=== PATIENT | female | born 1960 | race Caucasian/White ===

== ENCOUNTER 2019-02-08 17:33 | Emergency (ER) | payer MEDICARE, MEDICAID ==
--- NOTE | 2019-02-08 17:45 | Emergency Department Record ---
History of Present Illness - General Chief Complaint: Numbness Stated Complaint: HEAD PAIN/FACE NUMBNESS Time Seen by Provider: 02/08/19 17:45 Source: Patient Mode of Arrival: Ambulatory - Related Data Home Medications: Home Medications Medication Instructions Recorded Confirmed Last Taken Gabapentin/Lidocaine/Menthol 1 each TOP TID 02/08/19 02/08/19 02/07/19 [Smartrx Gabakit] Allergies/Adverse Reactions: Allergies Allergy/AdvReac Type Severity Reaction Status Date / Time Penicillins Allergy Intermediate HIVES Unverified 11/09/18 09:00 Past Medical History - SOCIAL HISTORY Smoking Status: Never smoker - RESPIRATORY Hx Respiratory Disorders: No - CARDIOVASCULAR Hx Cardio Disorders: Yes Hx Hypertension: Yes - NEURO Hx Neuro Disorders: Yes Hx Neuropathy: Yes - GI Hx GI Disorders: Yes Hx Irritable Bowel: Yes Comment:: Colon CA - Hx Genitourinary Disorders: Yes Hx UTI: Yes - ENDOCRINE Hx Endocrine Disorders: Yes Hx Thyroid Disease: Yes (Hypo) - MUSCULOSKELETAL Hx Musculoskeletal Disorders: Yes Hx Arthritis: Yes - PSYCH Hx Psych Problems: Yes Hx Anxiety: Yes Hx Depression: Yes - HEMATOLOGY/ONCOLOGY Hx Hematology/Oncology Disorders: Yes Hx Cancer: Yes Hx Chemotherapy: Yes Family Medical History Hx HTN: Father, Brother/Sister Medical Decision Making - Lab Data Result diagrams: 02/08/19 18:10 02/08/19 18:10 Disposition Clinical Impression: Headache, Numbness and tingling in left arm, Neuropathy, Hypokalemia, Cervical strain, acute, Neuritis Disposition: Home, Self-Care Condition: (1) Good Instructions: Cervical Strain (ED) Additional Instructions: motrin 400 mg ( two advils) three times a day heat to neck three times a day follow up with family Dr in 2-7 days Forms: Patient Portal Access Quality - Quality Measures Quality Measures: N/A - Blood Pressure Screening Does Patient Have Any of the Following: No Blood Pressure Classification: Pre-Hypertensive BP Reading Systolic Measurement: 142 Diastolic Measurement: 81 Screening for High Blood Pressure: < Pre-Hypertensive BP, F/U Documented > [ G8950] Pre-Hypertensive Follow-up Interventions: Referral to alternative/primary care provider.
--- NOTE | 2019-02-08 18:02 | Emergency Department Record ---
History of Present Illness - General Chief Complaint: Numbness Stated Complaint: HEAD PAIN/FACE NUMBNESS Time Seen by Provider: 02/08/19 17:45 Source: Patient, RN notes reviewed Mode of Arrival: Ambulatory - History of Present Illness Initial Comments: left sided head pain and numbness in the left arm and left face and the head started about one week ago and fnumbness started 8 hours ago she also has left neck pain and worse when she palpates the neck and the left side of her head. 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 Onset/Timin -: Minutes(s) Location: Left face History of same: No Quality: Numb Improves With: None Worsens With: None Associated Symptoms: Headaches - Maddock Coma Scale Eye Response: (4) Open spontaneously Motor Response: (6) Obeys commands Verbal Response: (5) Oriented Kassandra Total: 15 - Related Data Home Medications: Home Medications Medication Instructions Recorded Confirmed Last Taken Gabapentin/Lidocaine/Menthol 1 each TOP TID 02/08/19 02/08/19 02/07/19 [Smartrx Gabakit] Allergies/Adverse Reactions: Allergies Allergy/AdvReac Type Severity Reaction Status Date / Time Penicillins Allergy Intermediate HIVES Unverified 11/09/18 09:00 Travel Screening - Travel/Exposure Within Last 30 Days Have you traveled within the last 30 days?: No - Travel/Exposure Within Last Year Have you traveled outside the [place] in the last year?: No - Additonal Travel Details Have you been exposed to anyone with a communicable illness?: No - Travel Symptoms Symptom Screening: Headache Review of Systems Reviewed: No additional complaints except as noted below Constitutional: Reports: As per HPI. Denies: Chills, Fever, Malaise, Night sweats, Weakness, Weight change Eyes: Reports: As per HPI. Denies: Eye discharge, Eye pain, Photophobia, Vision change ENT: Reports: As per HPI. Denies: Congestion, Dental pain, Ear pain, Epistaxis , Hearing loss, Throat pain Respiratory: Reports: As per HPI. Denies: Cough, Dyspnea, Hemoptysis, Stridor, Wheezes Cardiovascular: Reports: As per HPI. Denies: Arrhythmia, Chest pain, Dyspnea on exertion, Edema, Murmurs, Orthopnea, Palpitations, Paroxysmal nocturnal dyspnea, Rheumatic Fever, Syncope Endocrine: Reports: As per HPI. Denies: Fatigue, Heat or cold intolerance, Polydipsia, Polyuria Gastrointestinal: Reports: As per HPI. Denies: Abdominal pain, Constipation, Diarrhea, Hematemesis, Hematochezia, Melena, Nausea, Vomiting Genitourinary: Reports: As per HPI. Denies: Abnormal menses, Discharge, Dyspareunia, Dysuria, Frequency, Hematuria, Incontinence, Retention, Urgency Musculoskeletal: Reports: As per HPI. Denies: Arthralgia, Back pain, Gout, Joint swelling, Myalgia, Neck pain Skin: Reports: As per HPI. Denies: Bruising, Change in color, Change in hair/ nails, Lesions, Pruritus, Rash Neurological: Reports: As per HPI, Headache, Numbness. Denies: Abnormal gait, Confusion, Paresthesias, Seizure, Tingling, Tremors, Vertigo, Weakness Psychiatric: Reports: As per HPI. Denies: Anxiety, Auditory hallucinations, Depression, Homicidal thoughts, Suicidal thoughts, Visual hallucinations Hematological/Lymphatic: Reports: As per HPI. Denies: Anemia, Blood Clots, Easy bleeding, Easy bruising, Swollen glands Past Medical History - SOCIAL HISTORY Smoking Status: Never smoker - RESPIRATORY Hx Respiratory Disorders: No - CARDIOVASCULAR Hx Cardio Disorders: Yes Hx Hypertension: Yes - NEURO Hx Neuro Disorders: Yes Hx Neuropathy: Yes - GI Hx GI Disorders: Yes Hx Irritable Bowel: Yes Comment:: Colon CA - Hx Genitourinary Disorders: Yes Hx UTI: Yes - ENDOCRINE Hx Endocrine Disorders: Yes Hx Thyroid Disease: Yes (Hypo) - MUSCULOSKELETAL Hx Musculoskeletal Disorders: Yes Hx Arthritis: Yes - PSYCH Hx Psych Problems: Yes Hx Anxiety: Yes Hx Depression: Yes - HEMATOLOGY/ONCOLOGY Hx Hematology/Oncology Disorders: Yes Hx Cancer: Yes Hx Chemotherapy: Yes Family Medical History Hx HTN: Father, Brother/Sister Physical Exam - General General Appearance: Alert, Oriented x3, Cooperative, No acute distress - Head Head exam: Normal inspection - Eye Eye exam: Normal appearance, PERRL Pupils: Normal accommodation - ENT ENT exam: Normal exam, Mucous membranes moist, Normal external ear exam, Normal orophraynx, TM's normal bilaterally Ear exam: Normal external inspection. negative: External canal tenderness Nasal Exam: Normal inspection. negative: Discharge, Sinus tenderness Mouth exam: Normal external inspection, Tongue normal Teeth exam: Normal inspection. negative: Dental caries Throat exam: Normal inspection. negative: Tonsillar erythema, Tonsillar exudate - Neck Neck exam: Normal inspection, Full ROM. negative: Tenderness - Respiratory Respiratory exam: Normal lung sounds bilaterally. negative: Respiratory distress - Cardiovascular Cardiovascular Exam: Regular rate, Normal rhythm, Normal heart sounds - GI/Abdominal GI/Abdominal exam: Soft, Normal bowel sounds. negative: Tenderness - Rectal Rectal exam: Deferred - exam: Deferred - Extremities Extremities exam: Normal inspection, Full ROM, Normal capillary refill. negative: Tenderness - Back Back exam: Reports: Normal inspection, Full ROM. Denies: Muscle spasm, Rash noted, Tenderness - Neurological Neurological exam: Alert, Normal gait, Oriented X3, Reflexes normal - Psychiatric Psychiatric exam: Normal affect, Normal mood - Skin Skin exam: Dry, Intact, Normal color, Warm Course Vital Signs 02/08/19 17:36 Temperature 97.8 F Pulse Rate 98 H Respiratory 18 Rate Blood Pressure 142/81 Pulse Ox 98 Medical Decision Making - Data Complexity MDM Data: Labs Ordered and/or Reviewed, X-Ray Ordered and/or Reviewed (CT of head), EKG Ordered and/or Reviewed (NSR no acute changes) - Lab Data Result diagrams: 02/08/19 18:10 02/08/19 18:10 Disposition Clinical Impression: Numbness and tingling in left arm, Neuropathy, Hypokalemia, Neuritis Headache Qualifiers: Headache type: unspecified Headache chronicity pattern: acute headache Intractability: not intractable Qualified Code(s): R51 - Headache Cervical strain, acute Qualifiers: Encounter type: initial encounter Qualified Code(s): S16.1XXA - Strain of muscle, fascia and tendon at neck level, initial encounter Disposition: Home, Self-Care Condition: (1) Good Instructions: Cervical Strain (ED) Additional Instructions: motrin 400 mg ( two advils) three times a day heat to neck three times a day follow up with family Dr in 2-7 days Forms: Patient Portal Access Quality - Quality Measures Quality Measures: N/A - Blood Pressure Screening Does Patient Have Any of the Following: No Blood Pressure Classification: Pre-Hypertensive BP Reading Systolic Measurement: 142 Diastolic Measurement: 81 Screening for High Blood Pressure: < Pre-Hypertensive BP, F/U Documented > [ G8950] Pre-Hypertensive Follow-up Interventions: Referral to alternative/primary care provider.
[2019-02-08 18:17] LABS: BASO % 0.2 % (0-6); EOS % 1.4 % (0-6); GRAN % 57.2 % (47-80); HEMATOCRIT 41.5 % (35.0-47.0); HEMOGLOBIN 13.8 gm/dl (11.6-16.0); LYMPH % 32.7 % (16-45); MEAN CELL VOLUME 90.4 fl (81-97); MEAN CORPUSCULAR HEMOGLOBIN 30.1 pg (27-33); MEAN CORPUSCULAR HGB CONC 33.3 g/dl (32-36); MEAN PLATELET VOLUME 10.9 fl (7.4-10.4); MONO % 8.5 % (0-9); PLATELET COUNT 190 K/uL (130-400); RED BLOOD COUNT 4.59 M/uL (3.80-5.40); RED CELL DISTRIBUTION WIDTH 13.2 % (11.5-14.5)
[2019-02-08 18:31] LABS: BLOOD UREA NITROGEN 17 mg/dL (6-20); CREATININE 0.6 mg/dL (0.5-0.9); EST GLOMERULAR FILTRATION RATE > 60 mL/min
[2019-02-08 18:34] LABS: GLUCOSE,RANDOM 86 mg/dL (74-109)
[2019-02-08] MEDS ORDERED: POTASSIUM CHLORIDE 10 MEQ TAB PO ONE (18:53)
[2019-02-08] MEDS ORDERED: KETOROLAC 30 MG/ML VIAL IVP ONE (18:54)
--- NOTE | 2019-02-10 12:45 | CT SCAN REPORT ---
EXAM: CT OF THE HEAD WITHOUT CONTRAST HISTORY: HEAD PAIN, LEFT SIDED FACE GOING NUMB. TECHNIQUE: Noncontrast CT of the head was obtained. FINDINGS: The brain volume is normal. There is no evidence of hemorrhage, mass effect, midline shift, or acute transcortical infarction. No extraaxial fluid collections are seen. The ventricles and basal cisterns are preserved. IMPRESSION: NORMAL CT SCAN OF THE BRAIN. JOB NUMBER: [id number] MTDD
== END 2019-02-08 19:35 | disposition home or self-care (01) ==
LOC: ER 17:33
DX: S16.1XXA Strain of muscle, fascia and tendon at neck level, initial encounter (principal); G56.92 Unspecified mononeuropathy of left upper limb; E87.6 Hypokalemia; R51 Headache; I10 Essential (primary) hypertension; X58.XXXA Exposure to other specified factors, initial encounter
CPT/HCPCS: 99284 ×2; 96374; 85025; 85730; 80048; 70450; 93005; 93010; J1885